=== PATIENT | female | born 1970 | race Caucasian/White ===

== ENCOUNTER 2022-08-05 07:18 | Outpatient (CLI) | payer OTHER ==
[~2022-08-05] VITALS: Ht 175.3 cm; Wt 95.7 kg
[2022-08-06] MEDS ORDERED: CETI10CA PO (10:21)
== END 2022-08-06 10:32 | disposition home or self-care (01) ==
LOC: PREOP 07:18
PROVIDERS: ATTEND Surgery
DX: Z01.818 Encounter for other preprocedural examination (principal)

== ENCOUNTER 2022-08-17 09:20 | Day surgery (SDC) | payer OTHER ==
[~2022-08-17] VITALS: Ht 175.3 cm; Wt 95.7 kg
[~2022-08-17 09:20] MED LIST: CETI10CA PO
[2022-08-17] MEDS ORDERED: LACTATED RINGERS 1,000 ML IV STA (09:21)
[2022-08-17 09:35] VITALS: BP 139/83
--- NOTE | 2022-08-17 10:03 | Progress Note-Pre Operative ---
Pre-Operative Progress Note Date of Available H&P: July 30, 2022 Date H&P Reviewed: August 17, 2022 Time H&P Reviewed: 10:02 History & Physical: H&P Reviewed, Patient Examed, No changes noted Pre-Operative Diagnosis: ALONSO Maravilla DO August 17, 2022 10:03
[2022-08-17] MEDS ORDERED: PROPOFOL INJECTION 50 ML IV ONE (10:42)
[2022-08-17] MEDS ORDERED: MIDAZOLAM 2 MG/2 ML (VERSED) VIAL ONE (10:42)
[2022-08-17 11:05] VITALS: BP 115/65
--- NOTE | 2022-08-17 11:05 | Progress Note-Post Operative ---
Post-Operative Progess Note Surgeon (s)/Oncology Rep (s) Surgeon ALONSO MERIDA DO Oncology Rep: none Pre-Operative Diagnosis Screening Post-Operative Diagnosis Polyp Early diverticula int hemorrhoids Procedure & Operative Findings Date of Procedure 08/17/22 Procedure Performed/Findings Colonoscopy with hot biopsy PROCEDURE NOTE: After informed consent was obtained, the patient was brought to the endoscopy suite, placed in bed in left lateral decubitus position. She was administered IV sedation by the TUBE TELLER who then monitored her vitals the entire time, heart rate, blood pressure and pulse ox and the scope was inserted, pushed all the way to about 130 cm and pushed into the cecum, took a picture of appendiceal orifice and noted the ileocecal valve. In the cecum right near the appendiceal opening I saw a polyp and elected to do a hot biopsy. Then slowly withdrew the scope insufflating to look circumferentially at the lynch starting in the cecum, up the ascending colon to the hepatic flexure, then down the transverse colon, splenic flexure, into the descending colon down in the sigmoid and then into the rectal vault and retroflexed the scope. Took picture of the internal hemorrhoids. She had the beginnings of small diverticula. The patient tolerated the procedure. She was recovered in endoscopy suite. Recommended for repeat colonoscopy in 5 years. Anesthesia Type IV sedation by TUBE TELLER Estimated Blood Loss Estimated blood loss (mL): scant Specimens/Packing Specimens Removed cecal polyp ALONSO MERIDA DO August 17, 2022 11:05
--- NOTE | 2022-08-17 11:06 | Endoscopy Discharge Instruct ---
Endo Procedure/Findings Findings 1.: Polyp 2.: Diverticulosis 3.: Internal Hemorrhoids Discharge Instructions - Activity: You might feel a little sleepy until tomorrow. This is due to the medicine you received to relax you. Until tomorrow, you should: NOT drive a car, operate machinery or power tools. NOT drink any alcoholic beverages. NOT make any important decisions or sign importortant papers. Do not return to work until tomorrow, unless otherwise instructed. Resume previous activities tomorrow. Diet: Start by taking liquids. If you tolerate liquids, advance to solid food. 1.: Colonscopy in 5 years Notify Physician - If you experience excessive bleeding, unusual abdominal pain, fever, or chest pain, contact your doctor immediately. Follow-Up: Other Follow up in my office in one week ALONSO MERIDA DO August 17, 2022 11:06
[2022-08-17 11:10] VITALS: BP 113/62
[2022-08-17 11:15] VITALS: BP 133/74
[2022-08-17 11:35] VITALS: BP 133/74
--- NOTE | 2022-08-17 12:38 | Anesthesia-General Post-Op ---
MAC Patient Condition Mental Status/LOC: Same as Preop Cardiovascular: Satisfactory Nausea/Vomiting: Absent Respiratory: Satisfactory Pain: Controlled Complications: Absent Post Op Complications Complications None Follow Up Care/Instructions Patient Instructions None needed. Anesthesiology Discharge Order Discharge Order Patient is doing well, no complaints, stable vital signs, no apparent adverse anesthesia problems. No complications reported per nursing. RAMIN BRITO CRNA August 17, 2022 12:38
== END 2022-08-17 11:44 | disposition home or self-care (01) ==
LOC: ENDO 09:20
PROVIDERS: ATTEND Surgery
DX: Z12.11 Encounter for screening for malignant neoplasm of colon (principal); D12.0 Benign neoplasm of cecum; K57.30 Diverticulosis of large intestine without perforation or abscess without bleeding; K64.8 Other hemorrhoids; F17.210 Nicotine dependence, cigarettes, uncomplicated; E66.9 Obesity, unspecified; Z68.31 Body mass index [BMI] 31.0-31.9, adult; Z28.310 Unvaccinated for COVID-19